=== PATIENT | female | born 1970 | race Caucasian/White ===

== ENCOUNTER 2017-02-21 10:38 | Emergency (ER) | payer OTHER ==
[2017-02-21] MEDS ORDERED: KETOROLAC TROMETHAMINE 60 MG/2 ML VIAL IM ONE (10:43)
--- NOTE | 2017-02-21 10:43 | PDOC ---
History of Present Illness - General Chief Complaint: Back Pain Stated Complaint: LEFT LOWER BACK PAIN Time Seen by Provider: 02/21/17 10:42 History Source: Patient, Old Records Exam Limitations: No Limitations - History of Present Illness Initial Comments: 02/21/17 10:48 47-year-old female with history of hypertension presents the emergency Department with complaints of left-sided lower back pain 10 days. The pain is described as sharp and electrical shocks at time that radiate down the back of her left leg. She has no prior injury of her back; however, she cleans houses for living and says that the pain started after she bent over to empty garbage. She denies abdominal pain, nausea, vomiting, urinary complaints. She has no difficulty urinating or defecating. The pain is worsened with certain movements. She took advil for the pain with some relief. Past History - Past Medical History Allergies/Adverse Reactions: Allergies Allergy/AdvReac Type Severity Reaction Status Date / Time No Known Allergies Allergy Verified 02/21/17 10:39 Home Medications: Ambulatory Orders Ascorbic Acid [C-1000] 1,000 mg PO DAILY 02/21/17 Cyclobenzaprine HCl [Flexeril 10 mg] 10 mg PO BID PRN #60 tablet 02/21/17 Ibuprofen 800 mg PO QID #30 tablet 02/21/17 Metoprolol Succinate [Toprol Xl -] 25 mg PO DAILY 02/21/17 Multivitamins [Tab-A-Vit -] 1 tab PO DAILY 02/21/17 Review of Systems - Review of Systems Able to Perform ROS?: Yes Is the patient limited Luxem[place]ish proficient: No Constitutional: No: Symptoms Reported HEENTM: No: Symptoms Reported Respiratory: No: Symptoms reported Cardiac (ROS): No: Symptoms Reported ABD/GI: No: Symptoms Reported : No: Symptoms Reported Musculoskeletal: Yes: See HPI, Back Pain Integumentary: No: Symptoms Reported Neurological: No: Symptoms reported *Physical Exam - Physical Exam Comments: 02/21/17 10:50 GENERAL: Well developed, well nourished. Awake and alert. No acute distress. HEENT: Normocephalic, atraumatic. PERRLA, EOMI. No conjunctival pallor. Sclera are non- icteric. Moist mucous membranes. Oropharynx is clear. NECK: Supple. Full ROM. No JVD. No lymphadenopathy. CARDIOVASCULAR: Regular rate and rhythm. No murmurs, rubs, or gallops. Distal pulses are 2+ and symmetric. PULMONARY: No evidence of respiratory distress. Lungs clear to auscultation bilaterally. No wheezing, rales or rhonchi. ABDOMINAL: Soft. Non-tender. Non-distended. No rebound or guarding. No organomegaly. Normoactive bowel sounds. MUSCULOSKELETAL Normal range of motion at all joints. No bony deformities or spinal/paraspinal tenderness. No CVA tenderness. There is a positive straight leg raise when she lifts her right lower extremity. EXTREMITIES: No cyanosis. No clubbing. No edema. No calf tenderness. SKIN: Warm and dry. Normal capillary refill. No rashes. No jaundice. NEUROLOGICAL: Alert, awake, appropriate. Cranial nerves 2-12 intact. Grossly non-focal exam. There are no sensory or mnotor deficits. PSYCHIATRIC: Cooperative. Good eye contact. Appropriate mood and affect. Medical Decision Making - Medical Decision Making 02/21/17 10:51 47-year-old female with a 10 day history of left-sided lower back pain radiating down her left lower extremity. Differential diagnosis includes but is not limited to: Sciatica, muscle spasm, disc herniation, nerve impingement. Plan: 1. No plain films are indicated as there has been no traumatic mechanism of injury 2. Toradol 60 mg IM for pain 3. Flexeril 5mg by mouth for muscle relaxation 4. Observe and reevaluate *DC/Admit/Observation/Transfer Diagnosis at time of Disposition: Lower back pain - Discharge Dispostion Disposition: HOME Condition at time of disposition: Stable Admit: No - Prescriptions Prescriptions: Cyclobenzaprine HCl [Flexeril 10 mg] 10 mg PO BID PRN #60 tablet PRN Reason: Pain Ibuprofen 800 mg PO QID #30 tablet - Referrals Referrals: Lupe Reyna MD [Primary Care Provider] - - Patient Instructions Printed Discharge Instructions: DI for Sciatica Additional Instructions: You have non-traumatic lowerback pain. You may take Ibuprofen 800mg every 6-8 hours as neded for pain. You may also take Flexeril 10mg as needed for pain-- this medication may cause drowsiness so please do not drive or operate any heavy machinery when taking this medication. Please follow-up with your primary care physician and return to the ED if your symptoms persist, worsen or new symptoms arise.
[2017-02-21 10:47] VITALS: BP 140/100; PULSE 88; TEMP 97.9; BMI 25.7
[2017-02-21] MEDS ORDERED: KETOROLAC TROMETHAMINE 60 MG/2 ML VIAL ONE (10:48)
[2017-02-21] MEDS ORDERED: CYCLOBENZAPRINE HCL 10 MG TABLET (FP) PO ONE ×2 (10:48→10:50)
[2017-02-21] MEDS ORDERED: CYCLOBENZAPRINE HCL 10 MG TABLET (FP) ONE (10:55)
== END 2017-02-21 11:35 | disposition home or self-care (01) ==
LOC: FER 10:38
PROC: 3E0233Z Introduction of Anti-inflammatory into Muscle, Percutaneous Approach (ICD-10-PCS; principal; 2017-02-21)
DX: M54.5 Low back pain (principal); I10 Essential (primary) hypertension
CPT/HCPCS: 96372; 99282-25

== ENCOUNTER 2021-09-09 11:33 | Day surgery (SDC) | payer OTHER ==
[2021-09-02 15:14] VITALS: BMI 28.1
[2021-09-09 11:46] VITALS: TEMP 97.1
[2021-09-09] MEDS ORDERED: PROPOFOL 20 ML ONE ×2 (12:40)
[2021-09-09 13:30] VITALS: BP 105/65; PULSE 67
== END 2021-09-09 13:40 | disposition home or self-care (01) ==
LOC: FASU-ENDO 11:33
PROVIDERS: ATTEND Internal Medicine Gastroenterology
PROC: 0DBP8ZX Excision of Rectum, Via Natural or Artificial Opening Endoscopic, Diagnostic (ICD-10-PCS; principal; 2021-09-09 12:43)
DX: Z12.11 Encounter for screening for malignant neoplasm of colon (principal); D12.8 Benign neoplasm of rectum; K64.0 First degree hemorrhoids
CPT/HCPCS: 88305-TC